=== PATIENT | male | born 1985 | race Caucasian/White ===

== ENCOUNTER → 2020-02-04 15:49 | Outpatient (CLI) | payer OTHER, SELFPAY ==
--- NOTE | 2020-02-04 15:55 | DI.US.S_ITS ---
PROCEDURE: US SCROTUM INDICATIONS: TESTICULAR SWELLING TECHNIQUE: Real-time scanning was performed of the scrotum and testicles, with image documentation. Color and pulse Doppler interrogation was performed of both testicles. COMPARISON: None. FINDINGS: Right: Testicle is normal in size at 4.9 x 2.5 x 3.5 cm, and homogenous in echotexture. Epididymis is normal in overall size and morphology. No hydrocele or varicoceles. Overlying scrotal skin is normal in thickness. Left: Testicle is normal in size at 4.7 x 2.6 x 2.4 cm, and demonstrates heterogeneity, with several hypoechoic foci within it. The abnormal process measures 3.7 x 2.7 x 3.5 cm and does not demonstrate abnormal vascularity. Epididymis is normal in overall size and morphology. No hydrocele or varicoceles. Overlying scrotal skin is normal in thickness. Doppler: Color and pulse Doppler demonstrate normal and symmetric arterial flow in both testicles. IMPRESSION: Hypoechoic process involving the left testicle. Given the recent prior vasectomy, differential diagnosis includes hematoma. However, differential diagnosis also includes an infiltrating process, including lymphoma. Please consider a short term followup ultrasound in 4-6 weeks. Dictated by: Jose Szymanski M.D. on 02/04/2020 at 16:47 Approved by: Jose Szymanski M.D. on 02/04/2020 at 16:50
== END ==
PROVIDERS: Referring Provider Family Medicine; Visit Provider Family Medicine
DX: N50.89 Other specified disorders of the male genital organs (principal); Z98.52 Vasectomy status
CPT/HCPCS: 76870